=== PATIENT | male | born 1990 | race Caucasian/White ===

== ENCOUNTER 2019-12-14 19:52 | Emergency (ER) | payer OTHER ==
[~2019-12-14] VITALS: Ht 177.8 cm; Wt 126.1 kg
[~2019-12-14 19:52] MED LIST: IBUPROFEN 800800 M1 PO
[2019-12-14 20:01] VITALS: BP 142/75
== END 2019-12-14 20:44 | disposition home or self-care (01) ==
LOC: M.ERS 19:52
DX: S61.211A Laceration without foreign body of left index finger without damage to nail, initial encounter (principal); W26.0XXA Contact with knife, initial encounter; Y93.89 Activity, other specified; Y92.89 Other specified places as the place of occurrence of the external cause; Y99.8 Other external cause status